=== PATIENT | male | born 1990 | race African-American/Black ===

== ENCOUNTER 2020-12-19 17:35 | Emergency (ER) | payer BC ==
[~2020-12-19] VITALS: Ht 175.3 cm; Wt 70.3 kg
[2020-12-19 18:38] VITALS: BP 138/75
== END 2020-12-19 18:45 | disposition home or self-care (01) ==
LOC: ER 17:37
DX: F41.9 Anxiety disorder, unspecified (principal); K21.9 Gastro-esophageal reflux disease without esophagitis; Z60.2 Problems related to living alone
CPT/HCPCS: 71045-TC